=== PATIENT | male | born 1980 | race Caucasian/White ===

== ENCOUNTER 2017-12-14 08:46 | Emergency (ER) | payer OTHER ==
[2017-12-14] MEDS: IBUPROFEN 800 MG TAB PO (09:12)
== END 2017-12-14 10:33 | disposition home or self-care (01) ==
LOC: FTE 08:46
DX: S89.92XA Unspecified injury of left lower leg, initial encounter (principal); W18.30XA Fall on same level, unspecified, initial encounter; Y92.9 Unspecified place or not applicable
CPT/HCPCS: 73562; 73590; 99283-25